=== PATIENT | female | born 1995 | race Caucasian/White ===

== ENCOUNTER → 2017-05-15 | Outpatient (CLI) | payer BC ==
--- NOTE | 2017-05-18 17:22 | ELECTROENCEPHALOPATHY REPORT ---
DATE OF SERVICE: 05/15/2017 PROCEDURE: Electroencephalogram. HISTORY OF PRESENT ILLNESS: The patient is a 21-year-old female who was in the shower when she dropped and convulsed. The event lasted about 10 seconds. When the patient came to she was slightly confused and after that the patient had a headache. The background rhythm consisted of 10-11 hertz, 60-80 microvolts in amplitude bilaterally symmetrical over the vertex region. The sharp waves were noted in the left temporal area. The rhythmic activity lasted up to 30 seconds was noted. The patient was awake, drowsy and sleepy during this recording. Hyperventilation was performed, and there was no buildup of diffuse or focal slow activity. Intermittent photic stimulation was done at various fast frequencies and no photic driving response was seen. IMPRESSION: This electroencephalogram is abnormal in awake and sleepy states. The epileptiform activity described above is suggestive of seizure disorder. The clinical correlation is suggested. Job ID: [id number] DocumentID: [id number] Dictated Date: 05/18/2017 16:42:18 Electronic Warfare Linguist Date: 05/18/2017 17:21:26 Dictated By: ANN ALLEN MD
== END ==
LOC: RT 08:17
PROVIDERS: ATTEND Nurse Practitioner Family
DX: R56.9 Unspecified convulsions (principal)
CPT/HCPCS: 95819